=== PATIENT | female | born 1965 | race Caucasian/White ===

== ENCOUNTER 2020-09-12 22:21 | Emergency (ER) | payer OTHER ==
[2020-09-12] MEDS ORDERED: traMADol HCl 50 MG TAB ONE (22:52)
== END 2020-09-12 23:26 | disposition home or self-care (01) ==
LOC: NAV ERS 22:21
DX: S93.411A Sprain of calcaneofibular ligament of right ankle, initial encounter (principal); F17.210 Nicotine dependence, cigarettes, uncomplicated; X58.XXXA Exposure to other specified factors, initial encounter

== ENCOUNTER 2022-02-22 11:18 | Emergency (ER) | payer OTHER ==
[2022-02-22] MEDS ORDERED: Ibuprofen 800 MG TAB ONE (12:40)
== END 2022-02-22 13:10 | disposition home or self-care (01) ==
LOC: NAV ERS 11:18
DX: S93.601A Unspecified sprain of right foot, initial encounter (principal); F17.210 Nicotine dependence, cigarettes, uncomplicated; X58.XXXA Exposure to other specified factors, initial encounter